=== PATIENT | female | born 1970 | race Caucasian/White ===

== ENCOUNTER → 2020-02-26 | Emergency (ER) | payer MEDICARE, OTHER ==
[~2020-02-26] VITALS: Ht 162.6 cm; Wt 83.9 kg
[~2020-02-26] MED LIST: EPINEPHrine HCL 1 MG/1 ML AMP SC ONE; methylPREDNISolone SOD SUCC 125 MG/2 ML VL IM ONE
[2020-02-26 09:39] VITALS: BP 191/92
== END | disposition home or self-care (01) ==
LOC: ER 09:19
DX: T78.40XA Allergy, unspecified, initial encounter (principal); X58.XXXA Exposure to other specified factors, initial encounter
CPT/HCPCS: 96372; 99284; J0171; J2930